=== PATIENT | female | born 1945 | race Caucasian/White ===

== ENCOUNTER 2018-07-01 17:09 | Emergency (ER) | payer MEDICARE ==
[2018-07-01] MEDS ORDERED: NORMAL SALINE 500 ML IV ONE (18:07)
[2018-07-01] MEDS ORDERED: METOCLOPRAMIDE HCL INJ/PF 10 MG/2 ML SDV IV ONE (18:08)
[2018-07-01] MEDS ORDERED: DIPHENHYDRAMINE HCL 50 MG CAPSULE PO ONE (18:08)
--- NOTE | 2018-07-01 18:13 | ER Document Report ---
ED Medical Screen (RME) - General Chief Complaint: Headache Stated Complaint: HEADACHE,NECK PAIN Time Seen by Provider: 07/01/18 17:21 Mode of Arrival: Ambulatory Information source: Patient Notes: 72-year-old female presents with complaint of headache that started 1 day prior to arrival. Patient describes a headache as throbbing, worse with bending forward. Patient states today it became more severe and she had an episode of lightheadedness, nausea. I have greeted and performed a rapid initial assessment of this patient. A comprehensive ED assessment and evaluation of the patient, analysis of test results and completion of medical decision making process we will be contacted by additional ED providers. PHYSICAL EXAMINATION: Vital signs reviewed GENERAL: Well-appearing, well-nourished and in no acute distress. LUNGS: No respiratory distress Musculoskeletal: Normal range of motion NEUROLOGICAL: Normal speech, normal gait. Cranial nerves II through XII intact PSYCH: Normal mood, normal affect. SKIN: Warm, Dry, normal turgor, no rashes or lesions noted. TRAVEL OUTSIDE OF THE [place] IN LAST 30 DAYS: No - HPI Onset: Yesterday Onset/Duration: Gradual, Persistent Quality of pain: Throbbing Associated Symptoms: Dizzy/lightheaded, Weakness Exacerbated by: Denies Relieved by: Denies Similar symptoms previously: Yes Recently seen / treated by doctor: No - Related Data Smoking: Non-smoker Frequency of alcohol use: None Drug Abuse: None Allergies/Adverse Reactions: codeine Allergy (Verified 07/01/18 17:14) Penicillins Allergy (Verified 07/01/18 17:14) Physical Exam - Vital signs Vitals: Temp Pulse Resp BP Pulse Ox 97.8 F 77 16 180/73 H 100 07/01/18 17:37 07/01/18 17:37 07/01/18 17:37 07/01/18 17:37 07/01/18 17:37 Course - Vital Signs Vital signs: Temp Pulse Resp BP Pulse Ox 97.8 F 77 16 180/73 H 100 07/01/18 17:37 07/01/18 17:37 07/01/18 17:37 07/01/18 17:37 07/01/18 17:37
--- NOTE | 2018-07-01 19:42 | ER Document Report ---
ED General - General Chief Complaint: Headache Stated Complaint: HEADACHE,NECK PAIN Time Seen by Provider: 07/01/18 17:21 Mode of Arrival: Ambulatory Notes: Patient is a 72-year-old female that comes to the emergency department for chief complaint of a throbbing headache with nausea that started yesterday, she states she cannot get rid of the headache. 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 She denies head injury, vomiting, any particular areas of pain in her head or neck, fever, focal numbness or weakness, neck stiffness. She is still urinating regularly. She states she has tried to stay hydrated. Past medical history includes migraines , she has had imaging of her head in the past, she gets them infrequently but states they feel like the same headache she has had for the past 24 hours. Headache was not maximal at onset. Past medical history also includes hypertension, hypothyroidism. TRAVEL OUTSIDE OF THE [place] IN LAST 30 DAYS: No - Related Data Allergies/Adverse Reactions: codeine Allergy (Verified 07/01/18 17:14) Penicillins Allergy (Verified 07/01/18 17:14) Past Medical History - General Information source: Patient - Social History Smoking Status: Never Smoker Chew tobacco use (# tins/day): No Frequency of alcohol use: None Drug Abuse: None Lives with: Family Family History: Reviewed & Not Pertinent Patient has suicidal ideation: No Patient has homicidal ideation: No - Past Medical History Cardiac Medical History: Reports: Hx Hypertension Endocrine Medical History: Reports: Hx Hypothyroidism Renal/ Medical History: Denies: Hx Peritoneal Dialysis Psychiatric Medical History: Reports: Hx Depression - Immunizations Hx Diphtheria, Pertussis, Tetanus Vaccination: Yes Review of Systems - Review of Systems Constitutional: No symptoms reported EENT: No symptoms reported Cardiovascular: No symptoms reported Respiratory: No symptoms reported Gastrointestinal: See HPI Genitourinary: No symptoms reported Female Genitourinary: No symptoms reported Musculoskeletal: No symptoms reported Skin: No symptoms reported Hematologic/Lymphatic: No symptoms reported Neurological/Psychological: See HPI Physical Exam - Vital signs Vitals: Temp Pulse Resp BP Pulse Ox 97.8 F 77 16 180/73 H 100 07/01/18 17:37 07/01/18 17:37 07/01/18 17:37 07/01/18 17:37 07/01/18 17:37 - Notes Notes: GENERAL: Slightly drowsy, still interacts well. No acute distress. HEAD: Normocephalic, atraumatic. EYES: Pupils equal, round, and reactive to light. Extraocular movements intact. ENT: Oral mucosa moist, tongue midline. NECK: Full range of motion. Supple. Trachea midline. No nuchal rigidity. LUNGS: Clear to auscultation bilaterally, no wheezes, rales, or rhonchi. No respiratory distress. HEART: Regular rate and rhythm. No murmur ABDOMEN: Soft, non-tender. Non-distended. Bowel sounds present in all 4 quadrants. EXTREMITIES: Moves all 4 extremities spontaneously. No edema, normal radial and dorsalis pedis pulses bilaterally. No cyanosis. BACK: no cervical, thoracic, lumbar midline tenderness. No saddle anesthesia, normal distal neurovascular exam. NEUROLOGICAL: Alert and oriented x3. Normal speech. [cranial nerves II through XII grossly intact]. PSYCH: Normal affect, normal mood. SKIN: Warm, dry, normal turgor. No rashes or lesions noted. Course - Re-evaluation Re-evalutation: On my evaluation patient denies a headache, states the medications from triage have completely resolved her headache. She states her symptoms are similar to her headaches in the past and she has been diagnosed with migraines. She is mildly drowsy from Benadryl but otherwise her examination is completely normal. No nuchal rigidity. No fever. Hypertension initially on evaluation, this was rechecked and significantly improved. CT of the head unremarkable. Chemistry unremarkable. On reevaluation patient is still asymptomatic and requesting to go home. Recommended that she rest more from her laboring, discussed follow-up back home, discussed return precautions in detail with patient and . They state understanding and agreement. - Vital Signs Vital signs: Temp Pulse Resp BP Pulse Ox 98.6 F 82 18 151/70 H 97 07/01/18 21:58 07/01/18 21:58 07/01/18 21:58 07/01/18 21:58 07/01/18 21:58 - Laboratory Result Diagrams: 07/01/18 20:14 Laboratory results interpreted by me: 07/01/18 20:14 Potassium 3.4 L Chloride 110 H Discharge - Discharge Clinical Impression: Headache Qualifiers: Headache type: unspecified Headache chronicity pattern: acute headache Intractability: not intractable Qualified Code(s): R51 - Headache Condition: Stable Disposition: HOME, SELF-CARE Additional Instructions: Your symptoms and examination are consistent with a migraine. Your imaging shows some sinus disease, your blood chemistry shows slightly low potassium, these both can be monitored and treated by your primary care at home. Rest and hydrate today. Return if you worsen including fever, vomiting, severe headache, passing out, weakness on one side of your body, or any other concerning or worsening symptoms.
--- NOTE | 2018-07-01 20:30 | RADIOLOGY REPORT (SQ) ---
EXAM DESCRIPTION: CT HEAD WITHOUT COMPLETED DATE/TIME: 07/01/2018 8:01 pm REASON FOR STUDY: headache blurred vision COMPARISON: None. TECHNIQUE: Axial images acquired through the brain without intravenous contrast. Images reviewed wi th bone, brain and subdural windows. Additional sagittal and coronal reconstructions were generated. Images stored on PACS. All CT scanners at this facility use dose modulation, iterative reconstruction, and/or weight based d osing when appropriate to reduce radiation dose to as low as reasonably achievable (ALARA). [facility]: Dose Right [facility]: CareDose [facility]: Dose Right [facility]: Teradose 4D [facility]: [employer] RADIATION DOSE: CT Rad equipment meets quality standard of care and radiation dose reduction techniq ues were employed. CTDIvol: 53.2 mGy. DLP: 937 mGy-cm. mGy. LIMITATIONS: None. FINDINGS: VENTRICLES: Normal size and contour. CEREBRUM: No masses. No hemorrhage. No midline shift. No evidence for acute infarction. Normal gra y/white matter differentiation. No areas of low density in the white matter. CEREBELLUM: No masses. No hemorrhage. No alteration of density. No evidence for acute infarction. EXTRAAXIAL SPACES: No fluid collections. No masses. ORBITS AND GLOBE: No intra- or extraconal masses. Normal contour of globe without masses. CALVARIUM: No fracture. PARANASAL SINUSES: Mild mucoperiosteal thickening in the maxillary sinuses. SOFT TISSUES: No mass or hematoma. OTHER: No other significant finding. IMPRESSION: Mild sinus disease with no acute intracranial imaging findings. EVIDENCE OF ACUTE STROKE: NO. COMMENT: Quality ID # [id number]: Final reports with documentation of one or more dose reduction techniques (e.g., Automated exposure control, adjustment of the mA and/or kV according to patient size, use of iterative reconstruction technique) TECHNICAL DOCUMENTATION: JOB ID: [id number] [employer]- All Rights Reserved Reading location - IP/workstation name: [email or web address]
[2018-07-01 20:43] LABS: ANION GAP 9 (5-19); BLOOD UREA NITROGEN 14 mg/dL (7-20); CALCIUM 8.5 mg/dL (8.4-10.2); CARBON DIOXIDE 24 mmol/L (22-30); CHLORIDE 110 mmol/L (98-107); GLUCOSE 98 mg/dL (75-110); POTASSIUM 3.4 mmol/L (3.6-5.0); SODIUM 142.7 mmol/L (137-145)
[2018-07-01 22:04] VITALS: BP 151/70
== END 2018-07-01 21:57 | disposition home or self-care (01) ==
LOC: ER 17:09
DX: R51 Headache (principal); I10 Essential (primary) hypertension; Z88.5 Allergy status to narcotic agent; Z88.0 Allergy status to penicillin; Z86.69 Personal history of other diseases of the nervous system and sense organs
CPT/HCPCS: 99284; 96361; 96374; 36415; 80048; 70450; A9270; J2765